=== PATIENT | male | born 1995 | race African-American/Black ===

== ENCOUNTER 2019-10-04 | Emergency (ER) | payer BC ==
[2019-10-04] MEDS ORDERED: VOLTAREN - GENE75 MG PO (19:58)
== END 2019-10-04 20:08 | disposition home or self-care (01) | DRG 538 ==
DX: S76.812A Strain of other specified muscles, fascia and tendons at thigh level, left thigh, initial encounter (principal); S86.912A Strain of unspecified muscle(s) and tendon(s) at lower leg level, left leg, initial encounter; X50.0XXA Overexertion from strenuous movement or load, initial encounter; Y93.89 Activity, other specified; Y92.73 Farm field as the place of occurrence of the external cause; Y99.0 Civilian activity done for income or pay